=== PATIENT | male | born 1975 | race Caucasian/White ===

== ENCOUNTER 2020-03-21 09:46 | Emergency (ER) | payer OTHER ==
[~2020-03-21] VITALS: Ht 182.9 cm; Wt 90.7 kg
[~2020-03-21 09:46] MED LIST: AMOCLA875 PO; OXYACE5T PO
[2020-03-21 10:48] LABS: BASOPHILS ABSOLUTE AUTO 0.06 K/mm3 (0.00-0.23); BASOPHILS PERCENT AUTO 1 % (0-2); EOSINOPHILS ABSOLUTE AUTO 0.24 K/mm3 (0.00-0.68); EOSINOPHILS PERCENT AUTO 2 % (0-6); Hematocrit 46.2 % (37.0-53.0); Hemoglobin 15.6 g/dL (13.5-17.5); IMMATURE GRAN ABSOLUTE AUTO 0.03 K/mm3 (0.00-0.10); IMMATURE GRAN PERCENT AUTO 0 % (0-1); LYMPHOCYTES ABSOLUTE AUTO 2.47 K/mm3 (0.84-5.20); LYMPHOCYTES PERCENT AUTO 24 % (21-46); MONOCYTES ABSOLUTE AUTO 1.15 K/mm3 (0.16-1.47); MONOCYTES PERCENT AUTO 11 % (4-13); Mean Corpuscular HGB 31.3 pg (26.0-34.0); Mean Corpuscular HGB Conc 33.8 g/dL (31.5-36.5); Mean Corpuscular Volume 93 fL (80-100); Mean Platelet Volume 9.5 fL (9.1-12.4); NEUTROPHILS ABSOLUTE AUTO 6.57 K/mm3 (1.96-9.15); NEUTROPHILS PERCENT AUTO 62 % (41-73); Platelet Count 289 K/mm3 (150-400); RDW Coefficient Variation 11.8 % (11.7-14.2); RDW Standard Deviation 40.8 fL (35.1-46.3); Red Blood Cell Count 4.98 M/mm3 (4.30-5.90); White Blood Cell Count 10.52 K/mm3 (4.00-11.30)
[2020-03-21 10:59] LABS: Alanine Aminotransfer (ALT/SGP 33 U/L (12-78); Albumin, Blood 3.6 g/dL (3.4-5.0); Albumin/Globulin Ratio 0.9 (0.8-1.8); Alk Phos 93 U/L (50-136); Anion Gap 4 mmol/L (6-16); Aspartate Aminotrans (AST/SGOT 17 U/L (12-37); Bilirubin, Total 0.4 mg/dL (0.1-1.0); Blood Urea Nitrogen 17 mg/dL (8-24); CO2, Blood 27 mmol/L (21-32); Chloride, Blood 109 mmol/L (98-108); Creatinine, Blood 0.94 mg/dL (0.60-1.20); Globulin, Blood 3.9 g/dL (2.2-4.0); Glomerular Filtration Rate >60 (60-); Glucose, Blood 94 mg/dL (70-99); Potassium, Blood 3.7 mmol/L (3.5-5.5); Sodium, Blood 140 mmol/L (136-145); Total Protein, Blood 7.5 g/dL (6.4-8.2)
[2020-03-21 14:30] LABS: Source, Urine Clean Catch
[2020-03-21 14:35] LABS: Appearance, Urine Clear (Clear); Bilirubin, Urine Neg (Neg); Blood, Urine Neg (Neg); Color, Urine Yellow (P-Yellow); Glucose Qualitative, Urine Neg (Neg); Ketones, Urine Neg (Neg); Leukocyte Esterase, Urine Neg (Neg); Nitrite, Urine Neg (Neg); Protein, Urine Neg (Neg); Specific Gravity, Urine 1.015 (1.003-1.022); Urobilinogen, Urine NORM (Normal)
== END 2020-03-21 15:14 | disposition home or self-care (01) ==
LOC: ER 09:46
PROVIDERS: Physician Assistant
DX: R10.9 Unspecified abdominal pain (principal); R11.2 Nausea with vomiting, unspecified; F17.200 Nicotine dependence, unspecified, uncomplicated
CPT/HCPCS: 36415; 74177; 80053; 81003; 83690; 85025; 99284-25; Q9967

== ENCOUNTER 2020-04-04 09:44 | Day surgery (SDC) | payer OTHER ==
[~2020-04-04] VITALS: Ht 182.9 cm; Wt 92.6 kg
== END 2020-04-04 12:38 | disposition home or self-care (01) ==
LOC: ORSCSDS 09:44
PROVIDERS: Internal Medicine Gastroenterology
PROC: 0DB68ZX Excision of Stomach, Via Natural or Artificial Opening Endoscopic, Diagnostic (ICD-10-PCS; principal; 2020-04-04 11:00)
PROC: 0DJD8ZZ Inspection of Lower Intestinal Tract, Via Natural or Artificial Opening Endoscopic (ICD-10-PCS; principal; 2020-04-04 11:00)
PROC: 0DB98ZX Excision of Duodenum, Via Natural or Artificial Opening Endoscopic, Diagnostic (ICD-10-PCS; principal; 2020-04-04 11:00)
DX: R10.32 Left lower quadrant pain (principal); K92.1 Melena; R10.9 Unspecified abdominal pain; K64.8 Other hemorrhoids; F17.210 Nicotine dependence, cigarettes, uncomplicated
CPT/HCPCS: 88305; 88342; J2704; J7120

== ENCOUNTER 2021-01-02 22:35 | Observation (INO) | payer OTHER ==
[~2021-01-02] VITALS: Ht 182.9 cm; Wt 92.2 kg
[2021-01-02 23:37] LABS: BASOPHILS ABSOLUTE AUTO 0.06 K/mm3 (0.00-0.23); BASOPHILS PERCENT AUTO 1 % (0-2); EOSINOPHILS ABSOLUTE AUTO 0.25 K/mm3 (0.00-0.68); EOSINOPHILS PERCENT AUTO 2 % (0-6); Hematocrit 46.8 % (37.0-53.0); Hemoglobin 16.6 g/dL (13.5-17.5); IMMATURE GRAN ABSOLUTE AUTO 0.03 K/mm3 (0.00-0.10); IMMATURE GRAN PERCENT AUTO 0 % (0-1); LYMPHOCYTES PERCENT AUTO 18 % (21-46); MONOCYTES ABSOLUTE AUTO 1.12 K/mm3 (0.16-1.47); MONOCYTES PERCENT AUTO 9 % (4-13); Mean Corpuscular HGB 33.1 pg (26.0-34.0); Mean Corpuscular HGB Conc 35.5 g/dL (31.5-36.5); Mean Corpuscular Volume 93 fL (80-100); Mean Platelet Volume 9.1 fL (9.1-12.4); NEUTROPHILS ABSOLUTE AUTO 8.74 K/mm3 (1.96-9.15); NEUTROPHILS PERCENT AUTO 71 % (41-73); Platelet Count 312 K/mm3 (150-400); RDW Coefficient Variation 12.4 % (11.7-14.2); RDW Standard Deviation 42.9 fL (35.1-46.3); Red Blood Cell Count 5.01 M/mm3 (4.30-5.90)
[2021-01-02 23:53] LABS: Alanine Aminotransfer (ALT/SGP 40 U/L (12-78); Albumin, Blood 3.8 g/dL (3.4-5.0); Albumin/Globulin Ratio 0.9 (0.8-1.8); Alk Phos 99 U/L (50-136); Anion Gap 3 mmol/L (6-16); Aspartate Aminotrans (AST/SGOT 24 U/L (12-37); Bilirubin, Total 0.3 mg/dL (0.1-1.0); Blood Urea Nitrogen 19 mg/dL (8-24); Bun/Creatinine Ratio 17.9 (12.0-20.0); CO2, Blood 28 mmol/L (21-32); Calcium, Blood 9.6 mg/dL (8.5-10.1); Chloride, Blood 108 mmol/L (98-108); Creatinine, Blood 1.06 mg/dL (0.60-1.20); Globulin, Blood 4.2 g/dL (2.2-4.0); Glomerular Filtration Rate >60 (60-); Glucose, Blood 96 mg/dL (70-99); Potassium, Blood 3.5 mmol/L (3.5-5.5); Sodium, Blood 139 mmol/L (136-145)
[2021-01-03 01:48] LABS: Influenza A, PCR NEGATIVE (NEGATIVE); Influenza B, PCR NEGATIVE (NEGATIVE); Resp Syncytial Virus, PCR NEGATIVE (NEGATIVE); SARS-Cov-2 (COVID-19) PCR, MMC NEGATIVE (NEGATIVE)
--- NOTE | 2021-01-03 02:00 | NUR ---
PT ARRIVED TO FLOOR FROM ER. PT A/O, BP ELEVATED; IMPROVED FROM ER, PT ASYMPTOMATIC. PT C/O RUQ ABD PAIN, REP PAIN INC W/PALP. PT DENIES N/V. ABX RUNNING. PT ORIENTED TO ROOM/CALL LIGHT AND NPO STATUS. PLAN TO MONITOR AND TX PER ORDERS.
--- NOTE | 2021-01-03 05:45 | NUR ---
PT NPO SINCE ARRIVING TO FLOOR. PT REMAINS PAINFUL, REPORTS SOME RELIEF W/50 MCG FENTANYL, PT ALSO REP WARM BLANKETS HLEPFUL. PT DENIED N/V. IV ABX CONT PER ORDERS. PLAN FOR SURGERY TODAY.
--- NOTE | 2021-01-03 07:56 | NUR ---
REPORTS PAIN IS "OK" AT THIS TIME, PT WANTS TO GET IN THE SHOWER, DENIES ANY NAUSEA, AMBULATING WITHOUT DIFFICULTY, CONT. TO MONITOR FOR ANY CHANGES, MEDICATE FOR PAIN PRN.
--- NOTE | 2021-01-03 12:54 | NUR ---
PT TAKEN TO DAY SURGERY.
--- NOTE | 2021-01-03 15:18 | NUR ---
01/03/21 1518 MARSHAAUDRA MILLER PT RECEIVED SCHEDULED DOSE OF ANTIBIOTICS PRIOR TO PROCEDURE PER DR ORDERS.
--- NOTE | 2021-01-03 17:18 | NUR ---
S/P LAP JEFF, AWAKE, A&OX4, DENIES ANY PAIN OR NAUSEA AT THIS TIME, ABD W/ 4 LAP INCIONS, W/ GAUZE ON UMBILICAL INCISION, C/D/I, CLEAR LIQUIDS GIVEN, REPORTS FEELING "BETTER" NO ACUTE CHANGES THIS SHIFT.
[2021-01-03] MEDS ORDERED: Norco 5-325 Ta1 EACH PO (18:30)
--- NOTE | 2021-01-03 19:18 | NUR ---
DISCHARGE TOLERATING CLEAR LQ's, AMBULATING EASILY, PAIN WELL CONTROLLED. FILLED SCRIPT. ESCORTED OUT VIA W/C.
== END 2021-01-03 19:15 | disposition home or self-care (01) ==
LOC: ER 22:35 → SURS 22:36
PROVIDERS: Emergency Medicine; ADMIT Surgery
DX: K80.12 Calculus of gallbladder with acute and chronic cholecystitis without obstruction (principal); F17.200 Nicotine dependence, unspecified, uncomplicated; Z20.822 Contact with and (suspected) exposure to COVID-19; Z87.19 Personal history of other diseases of the digestive system
CPT/HCPCS: 0241U; 36415; 74300; 76705; 80053; 83690; 85025; 96365; 96375; 96376; 99285-25; C1729; G0378; J0295; J1100; J1885; J2250; J2370; J2405; J2704; J3010; J7030; J7120

== ENCOUNTER 2024-10-10 08:31 | Inpatient (IN) | payer OTHER ==
[~2024-10-10] VITALS: Ht 182.9 cm; Wt 97.5 kg
[~2024-10-10 08:31] MED LIST changes: +Norco 5-325 Ta1 EACH PO
[2024-10-10 09:03] LABS: BASOPHILS ABSOLUTE AUTO 0.06 K/mm3 (0.00-0.23); BASOPHILS PERCENT AUTO 0 % (0-2); EOSINOPHILS ABSOLUTE AUTO 0.03 K/mm3 (0.00-0.68); EOSINOPHILS PERCENT AUTO 0 % (0-6); Hematocrit 45.3 % (37.0-53.0); Hemoglobin 15.5 g/dL (13.5-17.5); IMMATURE GRAN ABSOLUTE AUTO 0.04 K/mm3 (0.00-0.10); IMMATURE GRAN PERCENT AUTO 0 % (0-1); LYMPHOCYTES ABSOLUTE AUTO 2.21 K/mm3 (0.84-5.20); LYMPHOCYTES PERCENT AUTO 13 % (21-46); MONOCYTES ABSOLUTE AUTO 1.15 K/mm3 (0.16-1.47); MONOCYTES PERCENT AUTO 7 % (4-13); Mean Corpuscular HGB Conc 34.2 g/dL (31.5-36.5); Mean Corpuscular Volume 92 fL (80-100); NEUTROPHILS ABSOLUTE AUTO 14.08 K/mm3 (1.96-9.15); NEUTROPHILS PERCENT AUTO 80 % (41-73); NRBC ABSOLUTE 0.00 K/mm3 (0.00-0.02); NRBC Auto 0.0 /100 WBC (0.0-0.2); Platelet Count 300 K/mm3 (150-400); RDW Coefficient Variation 12.0 % (11.7-14.2); RDW Standard Deviation 40.1 fL (35.1-46.3)
[2024-10-10 09:17] LABS: Alanine Aminotransfer (ALT/SGP 45.0 U/L (12-78); Albumin, Blood 3.8 g/dL (3.4-5.0); Albumin/Globulin Ratio 0.8 (0.8-1.8); Anion Gap 9.0 mmol/L (3-11); Aspartate Aminotrans (AST/SGOT 30.0 U/L (12-37); Bilirubin, Total 0.8 mg/dL (0.1-1.0); Blood Urea Nitrogen 12.0 mg/dL (8-24); CO2, Blood 25.0 mmol/L (21-32); Calcium, Blood 8.8 mg/dL (8.5-10.1); Chloride, Blood 104.0 mmol/L (98-108); Creatinine, Blood 1.05 mg/dL (0.60-1.20); Globulin, Blood 4.7 g/dL (2.2-4.0); Glucose, Blood 120.0 mg/dL (70-99); Potassium, Blood 4.1 mmol/L (3.5-5.5); Sodium, Blood 134.0 mmol/L (136-145); Total Protein, Blood 8.5 g/dL (6.4-8.2)
[2024-10-10] MEDS ORDERED: Morphine Sulfate 4 MG/1 ML Injection IV ONE ×2 (10:45→12:25)
[2024-10-10] MEDS ORDERED: NS 1,000 ML IV SCH ×2 (10:45→14:10)
[2024-10-10] MEDS ORDERED: Ondansetron HCl 2 MG / ML 2ML Vial IV ONE (13:10)
[2024-10-10] MEDS ORDERED: Ondansetron HCl 2 MG / ML 2ML Vial IV PRN (14:10)
[2024-10-10] MEDS ORDERED: Naloxone HCl 0.4MG / ML 1ML Vial IV PRN (14:15)
[2024-10-10] MEDS ORDERED: Morphine Sulfate 4 MG/1 ML Injection IV PRN ×2 (14:15→17:20)
[2024-10-10 15:51] VITALS: BP 174/108
--- NOTE | 2024-10-10 16:06 | NUR ---
ADMISSION NOTE: REPORT RECIEVED FROM SLA BARBOSA IN ED. PT ARRIVED TO ROOM 352 VIA GURNEY. REPORTS PAIN OF 7/10. HEATING PAD PROVIDED TO PT PER REQUEST. IV FLUIDS STARTED PER EMAR. LYING IN BED AT THIS TIME. BED IN THE LOWEST POSITION. CALL LT NEAR.
[2024-10-10 17:02] VITALS: BP 158/100
--- NOTE | 2024-10-10 18:27 | NUR ---
SHIFT SUMMARY: A&OX4 THIS SHIFT. PLESANT AND COOPERATIVE WITH CARE. PAIN MANAGEMENT PER EMAR. BREATHING EQUAL AND UNLABORED. RESTING IN BED AT THIS TIME. CALL LT WITHIN REACH.
[2024-10-10 19:22] VITALS: BP 153/101
[2024-10-11 04:01] VITALS: BP 149/100
--- NOTE | 2024-10-11 04:20 | NUR ---
SHIFT SUMMARY PATIENT A/O X4. PLEASANT AND COOPERATIVE WITH CARE. PAIN MANAGED PER EMAR. VOIDING WELL, NO BM THIS SHIFT. PT REMAINED NPO. NO ACUTE CHANGES THROUGHOUT SHIFT. DIASTOLIC BP CONTINUES TO BE SLIGHTLY ELEVATED, BUT OTHERWISE VITALS REMAINED STABLE. WILL CONTINUE TO MONITOR AND REPORT TO ONCOMING RN.
[2024-10-11 05:47] LABS: BASOPHILS ABSOLUTE AUTO 0.06 K/mm3 (0.00-0.23); BASOPHILS PERCENT AUTO 0 % (0-2); EOSINOPHILS ABSOLUTE AUTO 0.09 K/mm3 (0.00-0.68); EOSINOPHILS PERCENT AUTO 1 % (0-6); Hematocrit 41.7 % (37.0-53.0); Hemoglobin 14.1 g/dL (13.5-17.5); IMMATURE GRAN ABSOLUTE AUTO 0.04 K/mm3 (0.00-0.10); IMMATURE GRAN PERCENT AUTO 0 % (0-1); LYMPHOCYTES ABSOLUTE AUTO 1.82 K/mm3 (0.84-5.20); LYMPHOCYTES PERCENT AUTO 13 % (21-46); MONOCYTES ABSOLUTE AUTO 1.39 K/mm3 (0.16-1.47); MONOCYTES PERCENT AUTO 10 % (4-13); Mean Corpuscular HGB Conc 33.8 g/dL (31.5-36.5); Mean Corpuscular Volume 91 fL (80-100); NEUTROPHILS ABSOLUTE AUTO 10.78 K/mm3 (1.96-9.15); NEUTROPHILS PERCENT AUTO 76 % (41-73); NRBC ABSOLUTE 0.00 K/mm3 (0.00-0.02); NRBC Auto 0.0 /100 WBC (0.0-0.2); Platelet Count 261 K/mm3 (150-400); RDW Coefficient Variation 12.0 % (11.7-14.2); RDW Standard Deviation 40.0 fL (35.1-46.3)
[2024-10-11 06:06] LABS: Anion Gap 8.0 mmol/L (3-11); Blood Urea Nitrogen 11.0 mg/dL (8-24); CO2, Blood 26.0 mmol/L (21-32); Calcium, Blood 8.5 mg/dL (8.5-10.1); Chloride, Blood 103.0 mmol/L (98-108); Creatinine, Blood 0.94 mg/dL (0.60-1.20); Glucose, Blood 92.0 mg/dL (70-99); Potassium, Blood 3.8 mmol/L (3.5-5.5); Sodium, Blood 133.0 mmol/L (136-145)
[2024-10-11 07:18] VITALS: BP 135/91
[2024-10-11 15:29] VITALS: BP 146/97
[2024-10-11] MEDS ORDERED: NS 1,000 ML IV SCH (15:35)
--- NOTE | 2024-10-11 17:09 | NUR ---
SUMMARY- PT A/O X4, INDEPENDANT IN THE ROOM. ADMITTED WITH PANCREATITIS. PT HAVING INTERMITTANT EPIGASTRIC PAIN, ADMIN MORPHINE PRN APPROX Q2-3HRS WITH ADQ RELEIF. PT'S ABD IS DIDTENDED, PT STAETS HE FEELS BLOATED. STATES HE IS PASSING GAS AND DENIES NAUSEA. BOWEL TONES NORMOACTIVE. NPO UNTIL MRCP PERFORMED. THAN STARTED ON CLEAR LIQUIDS, WHICH DID NOT SETTLE WELL. HOLDING BACK ON ADVANCING DIET. RESTARTED IV NS AT 125ML/HR. WILL ADVANCE DIET ABLE AND CONT TO CONTROL PAIN. WILL REPORT TO NOC RN
[2024-10-11 19:09] VITALS: BP 133/84
[2024-10-12 02:33] VITALS: BP 150/96
--- NOTE | 2024-10-12 05:24 | NUR ---
SHIFT SUMMARY PATIENT A/O X4- IND IN THE ROOM. VITAL SIGNS ELEVATED WHEN PT REPORTING PAIN, BUT AT TIMES WITHIN NORMAL RANGE. PATIENT PASSING FLATUS AND WALKED THE HALLS TO HELP MOVE THE GAS. SIMETHICONE GIVEN PRN. AND MORPHINE GIVEN EVERY 2-3 HOURS FOR PAIN MANAGEMENT. PT TOLERATING SMALL AMOUNTS OF WATER/ICE CHIPS WITHOUT N/V. NO ACUTE CHANGES THROUGHOUT THE SHIFT, WILL CONTINUE TO MONITOR AND REPORT TO ONCOMING RN.
[2024-10-12 06:32] LABS: BASOPHILS ABSOLUTE AUTO 0.06 K/mm3 (0.00-0.23); BASOPHILS PERCENT AUTO 1 % (0-2); EOSINOPHILS ABSOLUTE AUTO 0.16 K/mm3 (0.00-0.68); EOSINOPHILS PERCENT AUTO 1 % (0-6); Hematocrit 40.7 % (37.0-53.0); Hemoglobin 14.0 g/dL (13.5-17.5); IMMATURE GRAN ABSOLUTE AUTO 0.04 K/mm3 (0.00-0.10); IMMATURE GRAN PERCENT AUTO 0 % (0-1); LYMPHOCYTES ABSOLUTE AUTO 1.82 K/mm3 (0.84-5.20); LYMPHOCYTES PERCENT AUTO 14 % (21-46); MONOCYTES ABSOLUTE AUTO 1.31 K/mm3 (0.16-1.47); MONOCYTES PERCENT AUTO 10 % (4-13); Mean Corpuscular HGB Conc 34.4 g/dL (31.5-36.5); Mean Corpuscular Volume 90 fL (80-100); NEUTROPHILS ABSOLUTE AUTO 9.74 K/mm3 (1.96-9.15); NEUTROPHILS PERCENT AUTO 74 % (41-73); NRBC ABSOLUTE 0.00 K/mm3 (0.00-0.02); NRBC Auto 0.0 /100 WBC (0.0-0.2); Platelet Count 261 K/mm3 (150-400); RDW Coefficient Variation 11.9 % (11.7-14.2); RDW Standard Deviation 39.6 fL (35.1-46.3)
[2024-10-12 07:05] LABS: Anion Gap 7.0 mmol/L (3-11); Blood Urea Nitrogen 12.0 mg/dL (8-24); CO2, Blood 29.0 mmol/L (21-32); Calcium, Blood 8.8 mg/dL (8.5-10.1); Chloride, Blood 101.0 mmol/L (98-108); Creatinine, Blood 0.98 mg/dL (0.60-1.20); Glucose, Blood 102.0 mg/dL (70-99); Potassium, Blood 3.7 mmol/L (3.5-5.5); Sodium, Blood 133.0 mmol/L (136-145)
[2024-10-12 16:54] VITALS: BP 145/92
[2024-10-12] MEDS ORDERED: OXAYDO5 M1 PO (17:21)
[2024-10-12] MEDS ORDERED: SIME80CH PO (17:21)
[2024-10-12] MEDS ORDERED: MIRALAX17 GM PO (17:22)
--- NOTE | 2024-10-12 18:33 | NUR ---
PT DISCHARGED AT 1745 WITH DC INSTRUCTIONS, AND HARD SCRIPT FOR OXY, WENT TO [facility] TO VOCATIONAL COORDINATOR EARLY. PT 'S PAIN CONTROLLED WITH PO OXYCODONE. TOLERATING CLEARS AND A FEW BITES OF SOLIDS. FEELING GASSY AND SIMETHACONE HELPFUL FOR GAS. PT HAS BEEN AMBULATING ALL OVER THE HALLS AND STATES HIS ABD FEELING BETTER. USING HEATING PAD HELPFUL. GIVEN DC INSTRUCTIONS ESPECIALLY TO BE CAUTIOUS IN INTRODUCING SOLIDS AND WENT OVER BLAND FOODS. ENC TO COME BACK TO ED WITH WORSTENING SS ESPECIALLY INCREASE INTRACTABLE PAIN, N/V, FEVER OR INABILITY TO KEEP FLUIDS DOWN. PT INSISTED ON WALKING OUT TO THE CAR, RN ESCORT TO ELEVATOR.
== END 2024-10-12 16:53 | disposition home or self-care (01) | DRG 439 ==
LOC: ER 08:31 → MEDS 08:32
PROVIDERS: Emergency Medicine; Internal Medicine; ADMIT Hospitalist
DX: K85.90 Acute pancreatitis without necrosis or infection, unspecified (principal); E87.1 Hypo-osmolality and hyponatremia; K86.3 Pseudocyst of pancreas; F17.210 Nicotine dependence, cigarettes, uncomplicated; D72.829 Elevated white blood cell count, unspecified; Z90.49 Acquired absence of other specified parts of digestive tract; Z98.890 Other specified postprocedural states; Z83.3 Family history of diabetes mellitus; Z82.49 Family history of ischemic heart disease and other diseases of the circulatory system
CPT/HCPCS: 36415; 74177; 74181; 80048; 80053; 83690; 84484; 85025; 93005; 93010; 94760; 94762; 96374-59; 96375; 96376; 99285-25; A9270; G0378; J2270; J2405; J7030; Q9967